=== PATIENT | female | born 1990 | race Caucasian/White ===

== ENCOUNTER 2017-01-31 16:03 | Emergency (ER) | payer BC ==
[2017-01-31 16:11] VITALS: BP 151/82; PULSE 128; TEMP 99.4; BMI 27.6
--- NOTE | 2017-01-31 18:12 | PDOC ---
History of Present Illness - General Chief Complaint: Injury Stated Complaint: INJURY Time Seen by Provider: 01/31/17 17:05 - History of Present Illness Initial Comments: 01/31/17 18:12 CHIEF COMPLAINT: right ankle pain HISTORY OF PRESENT ILLNESS: 27 yo F with no PMH presents to [facility] with right ankle pain s/p falling from trampoline. Patient states she can not bear weight on her right foot and has swelling to her ankle. PAST MEDICAL HISTORY: Denies past medical history FAMILY HISTORY: Denies SOCIAL HISTORY: Denies tobacco, alcohol, illicit drug use. SURGICAL HISTORY: Denies ALLERGIES: PCN REVIEW OF SYSTEMS General/Constitutional: Denies fever or chills. Denies weakness, weight change. HEENT: Denies change in vision. Denies ear pain or discharge. Denies sore throat. Cardiovascular: Denies chest pain or shortness of breath. Respiratory: Denies cough, wheezing, or hemoptysis. Gastrointestinal: Denies nausea, vomiting, diarrhea or constipation. Denies rectal bleeding. Genitourinary: Denies dysuria, frequency, or change in urination. Musculoskeletal: Pain and swelling to right ankle. Denies joint or muscle swelling or pain. Denies neck or back pain. Skin and breasts: Denies rash or easy bruising. PHYSICAL EXAM General Appearance: Well-appearing, appropriately dressed. No apparent distress. HEENT: EOMI, PERRLA, normal ENT inspection, normal voice, TMs normal, pharynx normal. No conjunctival pallor. No photophobia, scleral icterus. Respiratory/Chest: Lungs CTAB. Cardiovascular: RRR. S1, S2. Vascular Pulses: Dorsalis-Pedis (R): 2+, Dorsalis-Pedis (L): 2+ Musculoskeletal/Extremities: Swelling and tenderness to medial and lateral malleoli of R ankle. No tenderness to base of 5th metatarsal, limited ROM to R ankle secondary to pain. Normal inspection. FROM of all extremities, normal capillary refill. Pelvis Stable. No CVA tenderness. No tenderness to extremities, pedal edema, swelling, erythema or deformity. Integumentary: Appropriate color, dry, warm. No cyanosis, erythema, jaundice or rash Neurologic: coordinator hotels II-XII intact. Fully oriented, alert. Appropriate mood/affect. Motor strength 5/5. No appreciable EOM palsy, facial droop or sensory deficit. 01/31/17 18:28 Past History - Past Medical History Allergies/Adverse Reactions: Allergies Allergy/AdvReac Type Severity Reaction Status Date / Time Penicillins Allergy Difficulty Verified 01/31/17 16:11 Breathing Home Medications: Ambulatory Orders Oxycodone HCl/Acetaminophen [Percocet 5-325 mg Tablet] 1 - 2 tab PO Q6H #16 tab MDD 8 01/31/17 Other medical history: NONE - Psycho/Social/Smoking Cessation Hx Anxiety: No Suicidal Ideation: No Smoking History: Never smoked Hx Alcohol Use: No Drug/Substance Use Hx: No Substance Use Type: None *Physical Exam - Vital Signs Last Vital Signs Temp Pulse Resp BP Pulse Ox 99.4 F 128 H 20 151/82 97 01/31/17 16:08 01/31/17 16:08 01/31/17 16:08 01/31/17 16:08 01/31/17 16:08 Medical Decision Making - Medical Decision Making 01/31/17 18:17 27 yo F with no PMH presents to [facility] with pain to R ankle s/p injury. -urine -Right ankle x-ray PAtient refuses pain medication at this time. X-ray shows oblique displaced fracutre of distal fibula shaft. Discussed case with ortho ANNABLELE Steel, will apply ankle stirrup and posterior ortho glass splint with close f/u with ortho tomorrow. Percocet rx sent to pharm. Advised patient to take medication as prescribed and follow up with orthopedics tomorrow. Advised patient of signs and symptoms for return to ED. Patient verbalized understanding and agrees to plan. 01/31/17 19:03 *DC/Admit/Observation/Transfer Diagnosis at time of Disposition: Fibula fracture Qualifiers: Encounter type: initial encounter Fibula location: shaft Fracture type: closed Fracture morphology: oblique Fracture alignment: displaced Laterality: right Qualified Code(s): S82.431A - Displaced oblique fracture of shaft of right fibula, initial encounter for closed fracture - Discharge Dispostion Disposition: HOME Condition at time of disposition: Stable Admit: No - Prescriptions Prescriptions: Oxycodone HCl/Acetaminophen [Percocet 5-325 mg Tablet] 1 - 2 tab PO Q6H #16 tab MDD 8 - Referrals Referrals: Eric Lo MD [Primary Care Provider] - Lavelle Reese MD [Staff Physician] - - Patient Instructions Printed Discharge Instructions: DI for Shinbone Fracture Additional Instructions: Please take pain medications as prescribed. As discussed, follow up with orthopedics tomorrow. Call Dr. Reese's office at 8am for an appointment before 12 pm. If you experience any numbness or tingling to your feet, loss of sensation to your feet or toes, or any new or worsening symptoms, please return to the ER immediately.
[2017-01-31] MEDS ORDERED: OXYCODONE/APAP 5/325MG COMBO TABLET ONE (18:21)
== END 2017-01-31 20:20 | disposition home or self-care (01) ==
LOC: JERFT 16:03
PROC: 2W3QX1Z Immobilization of Right Lower Leg using Splint (ICD-10-PCS; principal; 2017-01-31)
DX: S82.431A Displaced oblique fracture of shaft of right fibula, initial encounter for closed fracture (principal); W09.8XXA Fall on or from other playground equipment, initial encounter; Y93.44 Activity, trampolining; Y92.89 Other specified places as the place of occurrence of the external cause
CPT/HCPCS: 73610-TC-RT; 73630-TC-RT; 84703; 99281-25